=== PATIENT | female | born 1970 | race African-American/Black ===

== ENCOUNTER 2018-02-09 21:21 | Emergency (ER) | payer MEDICARE, MEDICAID ==
[2018-02-09 23:10] VITALS: BP 181/100
[2018-02-09] MEDS ORDERED: CYCLOBENZAPRINE HCL 10 MG TABLET PO ONE (23:21)
[2018-02-09] MEDS ORDERED: PREDNISONE 20 MG TABLET PO ONE (23:21)
[2018-02-09] MEDS ORDERED: NAPROXEN 250 MG TABLET PO ONE (23:22)
--- NOTE | 2018-02-09 23:25 | ER Document Report ---
ED General - General Chief Complaint: Neck Pain >24hrs old Stated Complaint: NECK PAIN Time Seen by Provider: 02/09/18 23:19 TRAVEL OUTSIDE OF THE [place] IN LAST 30 DAYS: No - HPI Notes: 48-year-old female with a history of intermittent chronic neck pain and cervical radiculopathy presents with neck pain. Gradual onset over several days , radiates down her right shoulder. Worse since moving down here from [place]. No fever, chills or sweats. No discrete or direct injury. Sharp and burning, nonradiating except as described. No other modifying factors, no other associated symptoms, no other provocative or palliative factors. - Related Data Allergies/Adverse Reactions: codeine Allergy (Verified 02/09/18 21:26) Past Medical History - Social History Smoking Status: Smoker,Current Status Unk Family History: Reviewed & Not Pertinent Patient has suicidal ideation: No Patient has homicidal ideation: No - Medical History Notes: Includes history of cervical radiculopathy and chronic neck pain Renal/ Medical History: Denies: Hx Peritoneal Dialysis Musculoskeletal Medical History: Reports Hx Arthritis Review of Systems - Review of Systems Notes: Review of systems as in history of present illness, otherwise no significant headache, chest pain, abdominal pain. Physical Exam - Vital signs Vitals: Temp Pulse Resp BP Pulse Ox 97.9 F 55 L 18 181/100 H 100 02/09/18 23:07 02/09/18 23:07 02/09/18 23:07 02/09/18 23:07 02/09/18 23:07 - Notes Notes: General: Well devloped, no acute distress. HEENT: Normocephalic, atraumatic. Pupils equal round reactive to light. Mucosa moist. No JVD. Chest: No trauma, normal excursion. Respiratory: Good air exchange, normal excursion. Cardiac: Regular rhythm Abdomen: Soft, benign. Nondistended. Back: No asymmetry or gross abnormality. Motor: Grossly normal power and tone. Neurologic: Alert, nonfocal. Vascular: Well perfused Skin: No petechiae or purpura Strength is symmetric in normal in the upper extremities in all cardinal muscle groups. DTRs 2+ symmetric. Sensation intact. Course - Re-evaluation Re-evalutation: 02/09/18 23:24 Appearing female likely exacerbation of chronic pain and cervical radiculopathy. No high-risk features. Will treat with a short course of steroids, NSAIDs, Flexeril, outpatient follow-up. - Vital Signs Vital signs: Temp Pulse Resp BP Pulse Ox 97.9 F 55 L 18 181/100 H 100 02/09/18 23:07 02/09/18 23:07 02/09/18 23:07 02/09/18 23:07 02/09/18 23:07 Discharge - Discharge Clinical Impression: Cervical radiculopathy Condition: Good Disposition: HOME, SELF-CARE Instructions: Neck Injury (Cervical Strain) ([facility]) Prescriptions: Cyclobenzaprine HCl [Flexeril 10 mg Tablet] 10 mg PO TIDP PRN #15 tab NS PRN Reason: Methylprednisolone [Medrol Dosepack (4 mg/Tab) 21 Tab/Dosepak] 4 mg PO ASDIR PRN #21 tab.ds.pk PRN Reason:
== END 2018-02-09 23:34 | disposition home or self-care (01) ==
LOC: ER 21:21
DX: M54.12 Radiculopathy, cervical region (principal); M54.2 Cervicalgia; Z88.5 Allergy status to narcotic agent
CPT/HCPCS: 99283; A9270 ×3; J7512